=== PATIENT | female | born 1935 | race Caucasian/White ===

== ENCOUNTER 2019-12-17 06:04 | Inpatient (IN) ==
[2019-12-17] MEDS ORDERED: Acetaminophen 325 MG TABLET PO ONE (06:14)
[2019-12-17] MEDS ORDERED: Vancomycin 1,000 MG VIAL IVPB ONE (06:14)
[2019-12-17] MEDS ORDERED: 0.9 % Sodium Chloride 1,000 ML IVC ONE (06:14)
[2019-12-17] MEDS ORDERED: Piperacillin/Tazobactam 3.375 GM in Water for inj. (sterile) 20 ML IVP ONE (06:15)
[2019-12-17 07:19] LABS: Bilirubin,Urine Negative (Negative); Blood,Urine Negative (Negative); Clarity,Urine Clear (Clear); Color,Urine Yellow (Yellow); Glucose,Urine (UA) Normal (Normal); Ketones,Urine Negative (Negative); Leukocyte Esterase,Urine Small (Negative); Nitrite,Urine Negative (Negative); Protein,Urine 30 mg/dL (Neg-Trace); Specific Gravity,Urine 1.015 (1.010-1.025); Urobilinogen,Urine Normal (Normal)
[2019-12-17 07:23] LABS: Basophils % 0.2 %; Mean Platelet Volume 10.6 fL (9.4-12.4)
[2019-12-17 07:28] LABS: Bacteria,Urine Few per hpf (None-Few); Mucus,Urine Few per lpf (None-Few); RBC,Urine 0-3 per hpf (0-3); Squamous Epithelial Cell,Urine Few per hpf (None-Few); Transitional Epi Cells,Urine Moderate per hpf (None-Few); WBC,Urine 15-30 per hpf (0-3)
[2019-12-17 07:32] LABS: INR 1.6; Prothrombin Time 17.9 Seconds (9.4-12.1)
[2019-12-17 08:08] LABS: Alanine Aminotransferase 22 Units/L (7-52); Albumin 2.8 g/dL (3.5-5.7); Albumin/Globulin Ratio 0.8 (1.1-2.2); Alkaline Phosphatase 91 Units/L (34-104); Aspartate Amino Transferase 27 Units/L (13-39); BUN/Creatinine Ratio 30 (6-26); Bilirubin,Direct 0.3 mg/dL (0.0-0.2); Bilirubin,Indirect 0.5 mg/dL (0.0-1.0); Bilirubin,Total 0.8 mg/dL (0.3-1.0); Blood Urea Nitrogen 21 mg/dL (8-23); Carbon Dioxide 30 mEq/L (23-29); Chloride 103 mEq/L (98-107); Globulin 3.5 g/dL (2.4-3.5); Glucose 116 mg/dL (70-105); Osmolality,Calculated 294 (280-300); Potassium 3.8 mEq/L (3.5-5.1); Sodium 140 mEq/L (136-145); Total Protein 6.3 g/dL (6.4-8.9); Troponin I 0.26 ng/mL (< 0.04); eGFR For African Americans > 60 (> 60); eGFR For Non-African Americans > 60 (> 60)
[2019-12-17 08:09] LABS: Eosinophils # 0.1 K/mcL (0.0-0.6); Eosinophils % 0.9 %; Hematocrit 29.6 % (35.3-44.9); Hemoglobin 10.1 g/dL (11.5-15.4); Immature Granulocytes % 0.9 % (0-4); Lymphocytes # 1.1 K/mcL (0.6-4.6); Lymphocytes % 7.6 %; Mean Corpuscular HGB Conc 34.1 g/dL (31.6-35.5); Mean Corpuscular Volume 98.3 fL (83.0-100.0); Monocytes # 0.8 K/mcL (0.0-1.3); Monocytes % 5.9 %; Platelet Count 264 K/mcL (140-400); Red Blood Count 3.01 M/mcL (3.82-4.97); Red Cell Distribution Width 16.2 % (11.5-14.5); Segmented Neutrophils % 84.5 %; White Blood Count 13.9 K/mcL (4.3-11.1)
[2019-12-17 08:11] LABS: Neutrophils # 11.8 K/mcL (1.6-8.9)
[2019-12-17 08:12] LABS: Mean Corpuscular Hemoglobin 33.6 pg (28.0-33.3)
[2019-12-17] MEDS ORDERED: Vancomycin 1,500 MG/265 ML IV.SOLN IVPB ONE (08:19)
[2019-12-17] MEDS ORDERED: Albuterol 2.5 MG/3 ML NEBULIZER IH PRN (09:13)
[2019-12-17] MEDS ORDERED: Ondansetron ODT 4 MG TAB.RAPDIS SL PRN (09:17)
[2019-12-17] MEDS ORDERED: Naloxone 0.4 MG/ML INJ IVP PRN (09:17)
[2019-12-17 10:02] LABS: D-Dimer 693 ng/mLFEU (0-500)
[2019-12-17 10:23] LABS: Lactate Dehydrogenase 211 Units/L (140-271)
[2019-12-17 10:36] LABS: Ferritin 312 ng/mL (10-120)
[2019-12-17 10:39] LABS: Fibrinogen 567 mg/dL (169-393)
[2019-12-17] MEDS: QUEtiapine Fumarate 100 MG TABLET PO SCH ×2 (11:50→20:40)
[2019-12-17] MEDS: Aspirin Enteric Coated 81 MG Tablet PO SCH (11:50)
[2019-12-17] MEDS: amLODIPine 5 MG TABLET PO SCH (11:51)
[2019-12-17] MEDS: 0.9 % Sodium Chloride 1,000 ML IVC SCH ×2 (11:51→23:45)
[2019-12-17] MEDS: Isosorbide MONOnitrate (24 HR) 60 MG TAB.ER.24H PO SCH (11:51)
[2019-12-17] MEDS: Divalproex Sodium 125 MG Sprinkle Capsule (DR) PO SCH ×2 (11:51→20:48)
[2019-12-17] MEDS: Furosemide 40 MG TABLET PO SCH (11:51)
[2019-12-17] MEDS: Apixaban 5 MG TABLET PO SCH ×2 (11:51→20:40)
[2019-12-17] MEDS: Piperacillin/Tazobactam 3.375 GM in 0.9 % Sodium Chloride Mini Bag 100 ML IVPB SCH ×2 (12:18→20:38)
[2019-12-17] MEDS ORDERED: *HR* LORazepam 2 MG/ML VIAL IVP ONE ×2 (12:18→21:53)
[2019-12-17] MEDS: hydrALAZINE 25 MG TABLET PO SCH ×2 (15:40→23:42)
[2019-12-17] MEDS: Mirtazapine 15 MG TABLET PO SCH (20:40)
[2019-12-18] MEDS ORDERED: *HR* LORazepam 2 MG/ML VIAL IVP ONE (03:10)
[2019-12-18] MEDS: Piperacillin/Tazobactam 3.375 GM in 0.9 % Sodium Chloride Mini Bag 100 ML IVPB SCH ×3 (04:53→20:51)
[2019-12-18 06:53] LABS: Alanine Aminotransferase 24 Units/L (7-52); Albumin 2.4 g/dL (3.5-5.7); Albumin/Globulin Ratio 0.8 (1.1-2.2); Alkaline Phosphatase 86 Units/L (34-104); Aspartate Amino Transferase 32 Units/L (13-39); BUN/Creatinine Ratio 36 (6-26); Bilirubin,Total 0.6 mg/dL (0.3-1.0); Blood Urea Nitrogen 20 mg/dL (8-23); Calcium 8.5 mg/dL (8.6-10.3); Carbon Dioxide 26 mEq/L (23-29); Chloride 111 mEq/L (98-107); Globulin 3.1 g/dL (2.4-3.5); Glucose 99 mg/dL (70-105); Osmolality,Calculated 299 (280-300); Potassium 3.9 mEq/L (3.5-5.1); Sodium 143 mEq/L (136-145); Total Protein 5.5 g/dL (6.4-8.9); eGFR For African Americans > 60 (> 60); eGFR For Non-African Americans > 60 (> 60)
[2019-12-18 07:03] LABS: Basophils % 0.5 %; Eosinophils # 0.3 K/mcL (0.0-0.6); Eosinophils % 3.2 %; Hematocrit 27.7 % (35.3-44.9); Hemoglobin 9.5 g/dL (11.5-15.4); Immature Granulocytes % 1.5 % (0-4); Lymphocytes % 12.9 %; Mean Corpuscular HGB Conc 34.3 g/dL (31.6-35.5); Mean Corpuscular Hemoglobin 33.1 pg (28.0-33.3); Mean Corpuscular Volume 96.5 fL (83.0-100.0); Mean Platelet Volume 9.7 fL (9.4-12.4); Monocytes # 0.6 K/mcL (0.0-1.3); Monocytes % 7.3 %; Platelet Count 290 K/mcL (140-400); Red Blood Count 2.87 M/mcL (3.82-4.97); Red Cell Distribution Width 15.4 % (11.5-14.5); Segmented Neutrophils % 74.6 %; White Blood Count 8.1 K/mcL (4.3-11.1)
[2019-12-18] MEDS: *HR* LORazepam 2 MG/ML VIAL IVP PRN ×2 (09:02→20:54)
[2019-12-18] MEDS: Furosemide 40 MG TABLET PO SCH (10:13)
[2019-12-18] MEDS: Aspirin Enteric Coated 81 MG Tablet PO SCH (10:13)
[2019-12-18] MEDS: QUEtiapine Fumarate 100 MG TABLET PO SCH ×2 (10:13→20:07)
[2019-12-18] MEDS: hydrALAZINE 25 MG TABLET PO SCH ×2 (10:13→16:18)
[2019-12-18] MEDS: amLODIPine 5 MG TABLET PO SCH (10:13)
[2019-12-18] MEDS: Isosorbide MONOnitrate (24 HR) 60 MG TAB.ER.24H PO SCH (10:13)
[2019-12-18] MEDS: Divalproex Sodium 125 MG Sprinkle Capsule (DR) PO SCH ×2 (10:13→20:05)
[2019-12-18] MEDS: Apixaban 5 MG TABLET PO SCH ×2 (10:13→20:06)
[2019-12-18] MEDS: Cholecalciferol (D-3) 1,000 UNIT (25MCG) TABLET PO SCH (10:14)
[2019-12-18] MEDS ORDERED: Spironolactone 25 MG TABLET PO ONE (15:30)
[2019-12-18] MEDS: Mirtazapine 15 MG TABLET PO SCH (20:07)
[2019-12-19] MEDS: hydrALAZINE 25 MG TABLET PO SCH ×3 (00:38→17:10)
[2019-12-19 03:08] LABS: BUN/Creatinine Ratio 33 (6-26); Blood Urea Nitrogen 19 mg/dL (8-23); Calcium 8.3 mg/dL (8.6-10.3); Carbon Dioxide 26 mEq/L (23-29); Chloride 110 mEq/L (98-107); Glucose 136 mg/dL (70-105); Magnesium 1.8 mg/dL (1.6-2.6); Osmolality,Calculated 298 (280-300); Potassium 3.7 mEq/L (3.5-5.1); Sodium 142 mEq/L (136-145); eGFR For African Americans > 60 (> 60); eGFR For Non-African Americans > 60 (> 60)
[2019-12-19 03:40] LABS: Basophils # 0.1 K/mcL (0.0-0.2); Basophils % 0.9 %; Eosinophils # 0.2 K/mcL (0.0-0.6); Eosinophils % 3.5 %; Hematocrit 28.2 % (35.3-44.9); Hemoglobin 9.1 g/dL (11.5-15.4); Lymphocytes # 1.1 K/mcL (0.6-4.6); Lymphocytes % 16.5 %; Mean Corpuscular Hemoglobin 30.6 pg (28.0-33.3); Mean Platelet Volume 9.8 fL (9.4-12.4); Monocytes # 0.6 K/mcL (0.0-1.3); Monocytes % 9.8 %; Neutrophils # 4.3 K/mcL (1.6-8.9); Nucleated Red Blood Cells 0.3 /100 WBC (0); Platelet Count 293 K/mcL (140-400); Red Blood Count 2.97 M/mcL (3.82-4.97); Red Cell Distribution Width 14.6 % (11.5-14.5); Segmented Neutrophils % 65.3 %; White Blood Count 6.6 K/mcL (4.3-11.1)
[2019-12-19 03:43] LABS: Mean Corpuscular HGB Conc 32.3 g/dL (31.6-35.5); Mean Corpuscular Volume 94.9 fL (83.0-100.0)
[2019-12-19] MEDS: Piperacillin/Tazobactam 3.375 GM in 0.9 % Sodium Chloride Mini Bag 100 ML IVPB SCH ×3 (05:02→21:14)
[2019-12-19] MEDS: *HR* LORazepam 2 MG/ML VIAL IVP PRN (05:03)
[2019-12-19] MEDS ORDERED: Acetaminophen IV 500 MG/50 ML INFUS..BTL IVPB ONE (05:34)
[2019-12-19] MEDS ORDERED: Furosemide 40 MG/4 ML VIAL IVP SCH (09:00)
[2019-12-19] MEDS: Apixaban 5 MG TABLET PO SCH ×2 (09:43→21:14)
[2019-12-19] MEDS: Divalproex Sodium 125 MG Sprinkle Capsule (DR) PO SCH ×2 (09:43→21:13)
[2019-12-19] MEDS: Aspirin Enteric Coated 81 MG Tablet PO SCH (09:43)
[2019-12-19] MEDS: QUEtiapine Fumarate 100 MG TABLET PO SCH ×2 (09:43→21:14)
[2019-12-19] MEDS: Isosorbide MONOnitrate (24 HR) 60 MG TAB.ER.24H PO SCH (09:43)
[2019-12-19] MEDS: amLODIPine 5 MG TABLET PO SCH (09:43)
[2019-12-19] MEDS: Cholecalciferol (D-3) 1,000 UNIT (25MCG) TABLET PO SCH (09:43)
[2019-12-19] MEDS ORDERED: *HR* LORazepam 2 MG/ML VIAL IVP ONE (10:47)
[2019-12-19] MEDS ORDERED: Vancomycin 500 MG in 0.9 % Sodium Chloride Mini Bag 100 ML IVPB ONE (12:16)
[2019-12-19] MEDS: *HR* LORazepam 2 MG/ML VIAL IVP SCH (18:18)
[2019-12-19] MEDS: Mirtazapine 15 MG TABLET PO SCH (21:14)
[2019-12-20] MEDS: *HR* LORazepam 2 MG/ML VIAL IVP SCH ×6 (00:26→23:28)
[2019-12-20] MEDS: hydrALAZINE 25 MG TABLET PO SCH ×4 (00:26→23:28)
[2019-12-20] MEDS: Piperacillin/Tazobactam 3.375 GM in 0.9 % Sodium Chloride Mini Bag 100 ML IVPB SCH ×2 (05:25→12:38)
[2019-12-20] MEDS: amLODIPine 5 MG TABLET PO SCH (08:49)
[2019-12-20] MEDS: Divalproex Sodium 125 MG Sprinkle Capsule (DR) PO SCH ×2 (08:49→20:15)
[2019-12-20] MEDS: Apixaban 5 MG TABLET PO SCH ×2 (08:49→20:16)
[2019-12-20] MEDS: *HR* LORazepam 2 MG/ML VIAL IVP PRN (08:50)
[2019-12-20] MEDS: Isosorbide MONOnitrate (24 HR) 60 MG TAB.ER.24H PO SCH (08:50)
[2019-12-20] MEDS: Aspirin Enteric Coated 81 MG Tablet PO SCH (08:50)
[2019-12-20] MEDS: QUEtiapine Fumarate 100 MG TABLET PO SCH ×2 (08:50→20:16)
[2019-12-20] MEDS: Cholecalciferol (D-3) 1,000 UNIT (25MCG) TABLET PO SCH (08:50)
[2019-12-20] MEDS ORDERED: Vancomycin 1,500 MG/265 ML IV.SOLN IVPB SCH (10:00)
[2019-12-20 10:18] LABS: INR 1.4; Prothrombin Time 16.1 Seconds (9.4-12.1)
[2019-12-20 10:33] LABS: Alanine Aminotransferase 16 Units/L (7-52); Albumin 2.7 g/dL (3.5-5.7); Albumin/Globulin Ratio 0.8 (1.1-2.2); Alkaline Phosphatase 82 Units/L (34-104); Aspartate Amino Transferase 17 Units/L (13-39); BUN/Creatinine Ratio 27 (6-26); Bilirubin,Total 0.6 mg/dL (0.3-1.0); Blood Urea Nitrogen 16 mg/dL (8-23); C-Reactive Protein 34 mg/L (Less than 10); Calcium 8.7 mg/dL (8.6-10.3); Carbon Dioxide 28 mEq/L (23-29); Chloride 109 mEq/L (98-107); Globulin 3.2 g/dL (2.4-3.5); Glucose 119 mg/dL (70-105); Lactate Dehydrogenase 163 Units/L (140-271); Magnesium 1.8 mg/dL (1.6-2.6); Osmolality,Calculated 300 (280-300); Phosphorous 2.7 mg/dL (2.7-4.5); Potassium 3.5 mEq/L (3.5-5.1); Sodium 144 mEq/L (136-145); Total Protein 5.9 g/dL (6.4-8.9); eGFR For African Americans > 60 (> 60); eGFR For Non-African Americans > 60 (> 60)
[2019-12-20 10:48] LABS: Ferritin 147 ng/mL (10-120)
[2019-12-20 10:51] LABS: Hemoglobin 10.2 g/dL (11.5-15.4); Mean Corpuscular HGB Conc 31.9 g/dL (31.6-35.5); Mean Corpuscular Hemoglobin 29.7 pg (28.0-33.3); Mean Corpuscular Volume 93.3 fL (83.0-100.0); Mean Platelet Volume 9.3 fL (9.4-12.4); Platelet Count 351 K/mcL (140-400); Red Blood Count 3.43 M/mcL (3.82-4.97); Red Cell Distribution Width 14.9 % (11.5-14.5); White Blood Count 7.3 K/mcL (4.3-11.1)
[2019-12-20 10:53] LABS: Activated Partial Thrombo Time 41.6 Seconds (26.0-36.0)
[2019-12-20] MEDS: Multivit/Ca/Min/Fe/FA 1 TAB TABLET PO SCH (12:39)
[2019-12-20] MEDS ORDERED: *HR* LORazepam 2 MG/ML VIAL IVP SCH (18:01)
[2019-12-20] MEDS: Mirtazapine 15 MG TABLET PO SCH (20:16)
[2019-12-21] MEDS: *HR* LORazepam 2 MG/ML VIAL IVP SCH ×2 (06:04→12:00)
[2019-12-21] MEDS: hydrALAZINE 25 MG TABLET PO SCH (08:00)
[2019-12-21] MEDS: Cholecalciferol (D-3) 1,000 UNIT (25MCG) TABLET PO SCH (08:00)
[2019-12-21] MEDS: Aspirin Enteric Coated 81 MG Tablet PO SCH (08:00)
[2019-12-21] MEDS: amLODIPine 5 MG TABLET PO SCH (08:01)
[2019-12-21] MEDS: Multivit/Ca/Min/Fe/FA 1 TAB TABLET PO SCH (08:01)
[2019-12-21] MEDS: QUEtiapine Fumarate 100 MG TABLET PO SCH (08:01)
[2019-12-21] MEDS: Apixaban 5 MG TABLET PO SCH (08:01)
[2019-12-21] MEDS: Isosorbide MONOnitrate (24 HR) 60 MG TAB.ER.24H PO SCH (08:01)
[2019-12-21] MEDS: Divalproex Sodium 125 MG Sprinkle Capsule (DR) PO SCH (08:02)
[2019-12-21 11:02] LABS: Mean Corpuscular HGB Conc 32.3 g/dL (31.6-35.5); Mean Corpuscular Hemoglobin 31.7 pg (28.0-33.3); Mean Corpuscular Volume 98.4 fL (83.0-100.0); Mean Platelet Volume 9.7 fL (9.4-12.4); Platelet Count 323 K/mcL (140-400); Red Blood Count 3.15 M/mcL (3.82-4.97); Red Cell Distribution Width 15.5 % (11.5-14.5); White Blood Count 6.8 K/mcL (4.3-11.1)
[2019-12-21 11:16] LABS: BUN/Creatinine Ratio 26 (6-26); Blood Urea Nitrogen 16 mg/dL (8-23); Calcium 9.1 mg/dL (8.6-10.3); Carbon Dioxide 28 mEq/L (23-29); Chloride 112 mEq/L (98-107); Glucose 94 mg/dL (70-105); Osmolality,Calculated 299 (280-300); Potassium 4.2 mEq/L (3.5-5.1); Sodium 144 mEq/L (136-145); eGFR For African Americans > 60 (> 60); eGFR For Non-African Americans > 60 (> 60)
[2019-12-21 12:00] VITALS: BP 146/59
== END 2019-12-21 12:56 | DRG 871 ==
LOC: EMEROOARM 06:04 → 2NENU 06:04 → SUATTDRO 09:32 → 2NENU 10:27
PROVIDERS: ADMIT Family Medicine; ATTEND Internal Medicine